=== PATIENT | female | born 1960 | race Caucasian/White ===

== ENCOUNTER → 2023-09-13 | Outpatient (CLI) | payer OTHER ==
--- NOTE | 2023-09-13 10:57 | US ---
EXAMINATION TYPE: US venous doppler duplex LE DATE OF EXAM: 09/13/2023 10:36 AM COMPARISON: NONE CLINICAL INDICATION: Female, 63 years old with history of M79.662 PAIN IN LEFT LOWER LEG M79.661; Kareem ateral leg cramping for 2 weeks SIDE PERFORMED: bilateral TECHNIQUE: The lower extremity deep venous system is examined utilizing real time linear array sonog mitra with graded compression, doppler sonography and color-flow sonography. VESSELS IMAGED: Common Femoral Vein Deep Femoral Vein Greater Saphenous Vein * Femoral Vein Popliteal Vein Small Saphenous Vein * Proximal Calf Veins (* superficial vessels) Right Leg: No evidence of DVT Left Leg: No evidence of DVT IMPRESSION: Grayscale, color doppler, spectral doppler imaging performed of the deep veins of the lo wer extremities. There is normal flow, compressibility, vascular waveforms.
== END | disposition home or self-care (01) ==
LOC: RADUSWWP 10:12
PROVIDERS: ATTEND Family Medicine
DX: M79.662 Pain in left lower leg (principal); M79.661 Pain in right lower leg
CPT/HCPCS: 93970